=== PATIENT | female | born 1975 | race Caucasian/White ===

== ENCOUNTER 2016-05-30 11:22 | Emergency (ER) | payer OTHER ==
[2016-05-30 11:29] VITALS: BP 141/77; PULSE 72; TEMP 98; BMI 23.3
[2016-05-30] MEDS ORDERED: IBUPROFEN 600 MG TABLET (FP) PO ONE ×2 (12:08→12:12)
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
== END 2016-05-30 13:36 | disposition home or self-care (01) ==
LOC: JERFT 11:22 → JER 11:22 → JERFT 13:36
PROC: 2W3EX1Z Immobilization of Right Hand using Splint (ICD-10-PCS; principal; 2016-05-30)
DX: S63.601A Unspecified sprain of right thumb, initial encounter (principal); S60.221A Contusion of right hand, initial encounter; S63.501A Unspecified sprain of right wrist, initial encounter; S50.11XA Contusion of right forearm, initial encounter; S60.211A Contusion of right wrist, initial encounter; Y04.2XXA Assault by strike against or bumped into by another person, initial encounter; Y93.89 Activity, other specified; Y92.239 Unspecified place in hospital as the place of occurrence of the external cause; Y99.0 Civilian activity done for income or pay
CPT/HCPCS: 73110-TC-RT; 73130-TC-RT; 99281-25

== ENCOUNTER 2017-03-30 15:47 | Emergency (ER) | payer OTHER ==
[2017-03-30 16:24] VITALS: BP 133/60; PULSE 66; TEMP 97.3; BMI 25.7
--- NOTE | 2017-03-30 16:47 | PDOC ---
Attending Attestation - Resident Resident Name: Anne Mcneal - HPI HPI: 03/30/17 16:54 Pt presents to the ED with partial fingernail avulsion. - Physicial Exam PE: 03/30/17 16:55 Agree with resident exam. + partial avulsion, not actively bleeding. - Medical Decision Making 03/30/17 16:55 Pt presents to the ED with partial finger nail avulsion, not actively bleeding. wound repaired inthe ED. Will discharge home.
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
[2017-03-30] MEDS ORDERED: DIPHTH,PERTUSS(ACELL),TET 0.5 ML DISP.SYRIN IM ONE (16:53)
[2017-03-30] MEDS ORDERED: BUPIVACAINE HCL/PF 0.5% (5MG/ML) 10 ML VIAL ONE (17:19)
== END 2017-03-30 19:00 | disposition home or self-care (01) ==
LOC: JER 15:47
PROC: 3E0234Z Introduction of Serum, Toxoid and Vaccine into Muscle, Percutaneous Approach (ICD-10-PCS; principal; 2017-03-30)
DX: S61.101A Unspecified open wound of right thumb with damage to nail, initial encounter (principal); W51.XXXA Accidental striking against or bumped into by another person, initial encounter; Y93.89 Activity, other specified; Y92.238 Other place in hospital as the place of occurrence of the external cause; Y99.0 Civilian activity done for income or pay
CPT/HCPCS: 90715; 99281-25

== ENCOUNTER 2018-05-07 10:23 | Emergency (ER) | payer OTHER ==
[2018-05-07 10:30] VITALS: BP 118/77; PULSE 61; TEMP 97.6; BMI 26.2
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
[2018-05-07] MEDS ORDERED: IBUPROFEN 600 MG TABLET (FP) PO ONE ×2 (10:53→11:07)
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
== END 2018-05-07 12:13 | disposition home or self-care (01) ==
LOC: JER 10:23
DX: S69.82XA Other specified injuries of left wrist, hand and finger(s), initial encounter (principal); Y04.2XXA Assault by strike against or bumped into by another person, initial encounter; Y93.F9 Activity, other caregiving; Y92.238 Other place in hospital as the place of occurrence of the external cause; Y99.0 Civilian activity done for income or pay; Y07.59 Other non-family member, perpetrator of maltreatment and neglect
CPT/HCPCS: 73130-TC-LT-FY; 99281-25

== ENCOUNTER 2020-07-05 12:41 | Emergency (ER) | payer OTHER ==
[2020-07-05 13:09] VITALS: BMI 24.5
[2020-07-05] MEDS ORDERED: MECLIZINE HCL 25 MG TABLET (FP) PO ONE (13:57)
[2020-07-05] MEDS ORDERED: SODIUM CHLORIDE 0.9% 1000 ML INFUS.BAG IV ONE (14:16)
[2020-07-05] MEDS ORDERED: MECLIZINE HCL 25 MG TABLET (FP) ONE (14:42)
[2020-07-05 15:12] LABS: BASO % 0.4 % (0-2.0); EOS % 1.5 % (0-4.5); HEMOGLOBIN 13.7 GM/dL (10.7-15.3); LYMPH % 41.6 % (8-40); MCH 30.1 pg (25.7-33.7); MCHC 34.3 g/dl (32.0-36.0); MEAN CELL VOLUME 87.7 fl (80-96); MEAN PLT VOLUME 8.5 fl (7.5-11.1); MONO % 7.5 % (3.8-10.2); PLATELET COUNT 228 K/MM3 (134-434); RBC 4.56 M/mm3 (3.60-5.2); RDW 14.2 % (11.6-15.6); WHITE BLOOD COUNT 5.6 K/mm3 (4.0-10.0)
[2020-07-05 15:28] LABS: POTASSIUM 4.1 mmol/L (3.5-5.1)
[2020-07-05 15:30] LABS: ALBUMIN 4.8 g/dl (3.4-5.0); BLOOD UREA NITROGEN 14.3 mg/dL (7-18); CALCIUM 10.1 mg/dL (8.5-10.1)
[2020-07-05 15:34] LABS: CREATININE 0.9 mg/dL (0.55-1.3)
[2020-07-05 15:35] LABS: TOT PROT 8.3 g/dl (6.4-8.2)
[2020-07-05] MEDS ORDERED: ACETAMINOPHEN 325 MG TABLET (FP) ONE (15:38)
[2020-07-05 15:46] LABS: BILIRUBIN,TOTAL 1.1 mg/dL (0.2-1)
[2020-07-05] MEDS ORDERED: CYANOCOBALAMIN (VITAMIN B-12) 1000 MCG/1 ML VIAL IM ONE (16:15)
[2020-07-05] MEDS ORDERED: KETOROLAC TROMETHAMINE 30 MG/1 ML VIAL IM ONE (16:54)
[2020-07-05] MEDS ORDERED: KETOROLAC TROMETHAMINE 30 MG/1 ML VIAL ONE (16:58)
[2020-07-05] MEDS ORDERED: KETOROLAC TROMETHAMINE 30 MG/1 ML VIAL IVPUSH ONE (17:00)
[2020-07-05 20:58] VITALS: BP 130/70; PULSE 64; TEMP 97.9
== END 2020-07-05 20:58 ==
LOC: JER 12:41
PROC: 3E023GC Introduction of Other Therapeutic Substance into Muscle, Percutaneous Approach (ICD-10-PCS; principal; 2020-07-05)
PROC: 3E0233Z Introduction of Anti-inflammatory into Muscle, Percutaneous Approach (ICD-10-PCS; 2020-07-05)
PROC: 3E0333Z Introduction of Anti-inflammatory into Peripheral Vein, Percutaneous Approach (ICD-10-PCS; 2020-07-05)
DX: J01.90 Acute sinusitis, unspecified (principal); R42 Dizziness and giddiness
CPT/HCPCS: 36415; 70450-TC; 70551-TC; 80053; 82607; 82728; 83036; 83540; 83550; 85025; 93005; 93010; 99285-25

== ENCOUNTER 2021-03-10 09:51 | Emergency (ER) | payer BC, OTHER ==
[2021-03-10 10:07] VITALS: BP 148/98; PULSE 66; TEMP 97.6; BMI 25.9
[2021-03-10] MEDS ORDERED: CEFTRIAXONE 1 GM in DEXTROSE 5%-WATER - 100 ML IVPB ONE (10:25)
[2021-03-10] MEDS ORDERED: ACETAMINOPHEN 1000 MG/100 ML VIAL IVPB ONE (10:33)
[2021-03-10] MEDS ORDERED: SODIUM CHLORIDE 0.9% 1000 ML INFUS.BAG IV ONE (10:38)
[2021-03-10] MEDS ORDERED: ACETAMINOPHEN INJECTION 100 ML IVPB ONE (10:48)
[2021-03-10] MEDS ORDERED: CEFTRIAXONE 1 GM/50 ML BAG ONE (10:48)
[2021-03-10] MEDS ORDERED: ONDANSETRON 4 MG/2 ML VIAL IVPUSH ONE (10:53)
[2021-03-10] MEDS ORDERED: ONDANSETRON 4 MG/2 ML VIAL ONE (10:54)
[2021-03-10 10:57] LABS: EPI CELLS >36 /uL (0-25.1); HYALINE CASTS 1 /uL (0-3.1); URINE APPEARANCE CLEAR; URINE BILIRUBIN 1+ (NEGATIVE); URINE COLOR ORANGE; URINE GLUCOSE (UA) NEGATIVE (NEGATIVE); URINE KETONE NEGATIVE (NEGATIVE); URINE LEUK ESTERASE 1+ (NEGATIVE); URINE NITRITE POSITIVE (NEGATIVE); URINE PROTEIN NEGATIVE (NEGATIVE); URINE RBC 16 /uL (0-23.9); URINE WBC 40 /uL (0-25.8)
[2021-03-10 10:58] LABS: BASO % 0.4 % (0-2.0); EOS % 0.5 % (0-4.5); HEMATOCRIT 42.5 % (32.4-45.2); HEMOGLOBIN 14.6 GM/dL (10.7-15.3); LYMPH % 30.6 % (8-40); MCH 30.4 pg (25.7-33.7); MCHC 34.4 g/dl (32.0-36.0); MEAN CELL VOLUME 88.3 fl (80-96); MEAN PLT VOLUME 8.3 fl (7.5-11.1); MONO % 4.7 % (3.8-10.2); NEUT % 63.8 % (42.8-82.8); PLATELET COUNT 235 10^3/uL (134-434); RBC 4.81 M/mm3 (3.60-5.2); RDW 13.1 % (11.6-15.6); WHITE BLOOD COUNT 7.4 K/mm3 (4.0-10.0)
[2021-03-10 11:22] LABS: ALBUMIN 4.4 g/dl (3.4-5.0); BLOOD UREA NITROGEN 12.6 mg/dL (7-18); CALCIUM 10.4 mg/dL (8.5-10.1)
[2021-03-10 11:27] LABS: TOT PROT 8.2 g/dl (6.4-8.2)
[2021-03-10 11:44] LABS: URINE BACTERIA MODERATE /uL (0-1359)
[2021-03-10] MEDS ORDERED: KETOROLAC TROMETHAMINE 30 MG/1 ML VIAL IVPUSH ONE (12:41)
[2021-03-10] MEDS ORDERED: KETOROLAC TROMETHAMINE 30 MG/1 ML VIAL ONE (12:46)
== END 2021-03-10 13:54 | disposition home or self-care (01) ==
LOC: JER 09:51
PROC: 3E0333Z Introduction of Anti-inflammatory into Peripheral Vein, Percutaneous Approach (ICD-10-PCS; principal; 2021-03-10)
PROC: 3E03329 Introduction of Other Anti-infective into Peripheral Vein, Percutaneous Approach (ICD-10-PCS; 2021-03-10)
PROC: 3E0333Z Introduction of Anti-inflammatory into Peripheral Vein, Percutaneous Approach (ICD-10-PCS; 2021-03-10)
PROC: 3E033GC Introduction of Other Therapeutic Substance into Peripheral Vein, Percutaneous Approach (ICD-10-PCS; 2021-03-10)
DX: N10 Acute pyelonephritis (principal)
CPT/HCPCS: 36415; 80053; 81003; 85025; 87040; 87086; 87804; 99284-25; C9803; J0131; U0003; U0005